=== PATIENT | male | born 1960 | race Caucasian/White ===

== ENCOUNTER 2017-03-13 10:54 | Emergency (ER) | payer OTHER ==
[2017-03-13 11:16] VITALS: BP 121/99; PULSE 117; RESP 20; TEMP 98; O2SAT 94
--- NOTE | 2017-03-13 11:37 | EDPHY ---
H & P Stated Complaint: c/o Rt lower back pain/w neuro s/s rad to Rt LL- WC injury in Dec. Time Seen by Provider: 03/13/17 11:17 HPI/ROS: Chief Complaint: Back pain HPI: 48-year-old male who had a work comp injury at the end of December when he fell off the back of his box truck landing on his back. He has been having back pain since that time. He has been seen by work[employer]'s [employer]. He has been having twice weekly Physical therapy. He has been taking ibuprofen and performing exercises. Patient states he is feeling much better last Monday and over exert himself. 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 The following day his back pain was more severe. He has had a little bit of numbness down the back of his leg. He is ambulating with discomfort. No new other numbness or weakness. Has a history of BPH with some chronic urine has intake. He is able to empty his bladder fully. No constipation. No fevers or chills. ROS: 10 point Review of Systems is negative except as noted in the HPI. PMH: Back injury Social History: Positive smoking, no alcohol, no recreational drug use Family History: non-contributory Physical Exam: Gen: Awake, Alert, No Distress HEENT: Nose: no rhinorrhea Eyes: PERRLA, EOMI Mouth: Moist mucosa Neck: Supple, no JVD Chest: nontender, lungs clear to auscultation Heart: S1, S2 normal, no murmur Abd: Soft, non-tender, no guarding Back: no CVA tenderness, no midline tenderness Ext: no edema, non-tender Skin: no rash Neuro: CN II-XII intact, Sensation grossly intact, Strength 5/5 in bilateral upper and lower extremities, he has sensation intact in all dermatomes. He has normal plantar flexion and dorsiflexion. Normal deep tendon reflexes, toes are downgoing. - Personal History Current Tetanus Diphtheria and Acellular Pertussis (TDAP): Yes - Medical/Surgical History Other PMH: fell off truck @ work in Dec. - injuring LT lower back - in PT- Monday while @ work felt Rt side back pain. today numbness and tingliing down Rt side - Social History Smoking Status: Current every day smoker Constitutional: Initial Vital Signs Temperature (C) 36.6 C 03/13/17 11:11 Heart Rate 117 H 03/13/17 11:11 Respiratory Rate 20 03/13/17 11:11 Blood Pressure 121/99 H 03/13/17 11:11 O2 Sat (%) 94 03/13/17 11:11 O2 Delivery Mode Room Air Home Medications: Medication Instructions Recorded Hydrocodone/Acetaminophen 1 - 2 each PO Q4-6PRN PRN #10 03/13/17 [Hydrocodon-Acetaminophen 5-325] tablet MOTRIN 03/13/17 Medical Decision Making ED Course/Re-evaluation: 56-year-old male with exacerbation of back pain. Symptoms consistent with sciatica. He has no new red flags for acute cauda equina syndrome or epidural abscess. He is neurologically intact. He will discharge with back pain instructions, given of short course of hydrocodone for breakthrough pain. Will follow up with [facility] as an outpatient. Departure - Departure Disposition: Home, Routine, Self-Care Clinical Impression: Back pain Condition: Good Instructions: Sciatica (ED), Lower Back Exercises (ED) Additional Instructions: Take ibuprofen, 600 mg, 3 times a day. You may change the Lidoderm patch every 24 hr. These are available over-the- counter. You may take hydrocodone with acetaminophen as needed for breakthrough pain. Make sure to remain active. Did do not lay in bed or sit in a chair for long periods. It is important to remain active and keep your back moving in order to improve. Please see the attached back exercise instructions. [facility] doctor in next 2-3 days for further evaluation. Return to the emergency department for uncontrolled pain, new numbness or weakness, inability to urinate, fevers, chills, or any other concerns. Referrals: Work Comp Referral [facility] [place] [Outside] - As per Instructions Prescriptions: Hydrocodone/Acetaminophen [Hydrocodon-Acetaminophen 5-325] 1 - 2 each PO Q4- 6PRN PRN #10 tablet PRN Reason: Pain, Severe
[2017-03-13] MEDS ORDERED: LIDOCAINE 5% 1 EA PATCH TD ONE ×2 (12:00)
[2017-03-13] MEDS ORDERED: LIDOCAINE 5% 1 EA PATCH TD SCH (13:15)
[2017-03-13] MEDS ORDERED: PATCH REMOVAL 1 EA PATCH TD SCH ×2 (21:00)
[2017-03-14] MEDS ORDERED: LIDOCAINE 5% 1 EA PATCH TD SCH (09:00)
== END 2017-03-13 12:21 | disposition home or self-care (01) ==
LOC: CED 10:54
DX: M54.9 Dorsalgia, unspecified (principal); F17.200 Nicotine dependence, unspecified, uncomplicated